=== PATIENT | male | born 1975 | race Caucasian/White ===

== ENCOUNTER 2019-04-19 01:13 | Emergency (ER) | payer OTHER, SELFPAY ==
[~2019-04-19] VITALS: Ht 185.4 cm; Wt 93.8 kg
[2019-04-19 01:16] VITALS: BP 118/65
== END 2019-04-19 02:07 | disposition home or self-care (01) ==
LOC: ED 02:01
DX: L03.317 Cellulitis of buttock (principal); L02.31 Cutaneous abscess of buttock; F17.210 Nicotine dependence, cigarettes, uncomplicated
CPT/HCPCS: 99283